=== PATIENT | male | born 1955 ===

== ENCOUNTER 2022-02-03 06:04 | Day surgery (SDC) | payer OTHER ==
[2022-02-04] MEDS ORDERED: AVAPRO (16:49)
[2022-02-04] MEDS ORDERED: METOPROLOL 12.5 MG (16:49)
== END 2022-02-03 11:30 | disposition home or self-care (01) ==
LOC: AMB-ENDOS 06:04
PROVIDERS: ATTEND Internal Medicine Gastroenterology
DX: D12.0 Benign neoplasm of cecum (principal); Z20.822 Contact with and (suspected) exposure to COVID-19; Z79.02 Long term (current) use of antithrombotics/antiplatelets; I10 Essential (primary) hypertension

== ENCOUNTER 2022-02-04 14:56 | Inpatient (IN) | payer OTHER ==
[~2022-02-04] VITALS: Ht 152.4 cm; Wt 77.1 kg
--- NOTE | 2022-02-04 16:05 | NUR ---
PTE NO CONTESTA.
[2022-02-04] MEDS ORDERED: AVAPRO (16:49)
[2022-02-04] MEDS ORDERED: METOPROLOL 12.5 MG (16:49)
--- NOTE | 2022-02-04 18:08 | NUR ---
PACIENTE ALERTA Y ORIENTADO X3 EN COMPANIA DE ESPOSA. PACIENTE EN MICHEAL EN POSICION SEMI-KRAFT CON BARANDAS ELEVADAS POR SEGURIDAD. SE EDUCA SOBRE TRATAMIENTO MEDICO. SE REALIZAN MUESTRAS DE LAB BAJO MEDIDAS ASEPTICAS PATT ORDEN MEDICA. SE CANALIZA EN MANO (R) ANGIO 18, AREA TARIK DE EDEMA Y ENROJECIMIENTO. SE ADMINSTRA MEDICAMENTO PATT ORDEN MEDICA. CT NOTIFICADO A TECNICO DE RADIOLOGIA.
[2022-02-08] MEDS ORDERED: CIPRO500 MG PO (11:30)
[2022-02-08] MEDS ORDERED: METRONIDAZOLE500 MG PO (11:31)
[2022-02-08] MEDS ORDERED: INTESTINEX680 M1 PO (11:32)
== END 2022-02-08 12:50 | disposition home or self-care (01) | DRG 394 ==
LOC: ER 14:56 → SEC-K 20:57 → MEDI 20:57
PROVIDERS: ADMIT Internal Medicine; ATTEND Internal Medicine
PROC: BW21ZZZ Computerized Tomography (CT Scan) of Abdomen and Pelvis (ICD-10-PCS; principal; 2022-02-04)
DX: K91.89 Other postprocedural complications and disorders of digestive system (principal); I25.810 Atherosclerosis of coronary artery bypass graft(s) without angina pectoris; G89.18 Other acute postprocedural pain; K52.89 Other specified noninfective gastroenteritis and colitis; D12.0 Benign neoplasm of cecum; I11.9 Hypertensive heart disease without heart failure